=== PATIENT | female | born 2005 | race Asian ===

== ENCOUNTER 2024-03-12 10:44 | Outpatient (CLI) | payer OTHER, SELFPAY ==
[2024-03-15 04:31] LABS: QuantiFERON Mitogen minus NIL 9.96 IU/mL; QuantiFERON NIL 0.04 IU/mL; Quantiferon Plus TB2 minus NIL 0.01 IU/mL (<=0.34); Quantiferon TB Gold Plus Negative (Negative)
== END 2024-03-12 10:45 | disposition home or self-care (01) ==
PROVIDERS: Visit Provider Nurse Practitioner
DX: Z11.1 Encounter for screening for respiratory tuberculosis (principal)
CPT/HCPCS: 36415; 86480